=== PATIENT | male | born 1940 | race Caucasian/White ===

== ENCOUNTER 2019-07-11 12:58 | Observation (INO) | payer MEDICARE ==
[2019-07-11] MEDS ORDERED: ASPIRIN 81 MG TABLET, CHEWABLE PO ONE (13:02)
--- NOTE | 2019-07-11 13:53 | RADIOLOGY REPORT (SQ) ---
EXAM DESCRIPTION: CHEST SINGLE VIEW COMPLETED DATE/TIME: 07/11/2019 1:41 pm REASON FOR STUDY: bed 15 cp COMPARISON: None. EXAM PARAMETERS: NUMBER OF VIEWS: One view. TECHNIQUE: Single frontal radiographic view of the chest acquired. RADIATION DOSE: NA LIMITATIONS: None. FINDINGS: LUNGS AND PLEURA: No consolidation, pneumothorax or pleural effusion. MEDIASTINUM AND HILAR STRUCTURES: No masses. Contour normal. HEART AND VASCULAR STRUCTURES: Heart normal in size. Normal vasculature. BONES: No acute findings. HARDWARE: There is a left-sided pacemaker. IMPRESSION: No acute radiographic finding in the chest. TECHNICAL DOCUMENTATION: JOB ID: [id number] 2010 [employer]- All Rights Reserved Reading location - IP/workstation name: [email or web address]
[2019-07-11 14:13] LABS: ABSOLUTE LYMPHOCYTES (AUTO) 1.1 10^3/uL (0.5-4.7); ABSOLUTE MONOCYTES (AUTO) 0.2 10^3/uL (0.1-1.4); ABSOLUTE NEUT (AUTO) 2.4 10^3/uL (1.7-8.2); BASOPHILS % (AUTO) 0.6 % (0-2); EOSINOPHILS % (AUTO) 0.7 % (0-6); HEMATOCRIT 35.9 % (37.9-51.0); LYMPHOCYTES % (AUTO) 29.3 % (13-45); MEAN CORPUSCULAR HEMOGLOBIN 29.9 pg (27.0-33.4); MEAN CORPUSCULAR HGB CONC 33.5 g/dL (32.0-36.0); MEAN CORPUSCULAR VOLUME 89 fl (80-97); MONOCYTES % (AUTO) 5.1 % (3-13); PLATELET COUNT 159 10^3/uL (150-450); RED BLOOD COUNT 4.01 10^6/uL (4.35-5.55); RED CELL DISTRIBUTION WIDTH 15.7 % (11.5-14.0); SEGMENTED NEUTROPHILS % (AUTO) 64.3 % (42-78); TOTAL CELLS COUNTED % (AUTO) 100 %; WHITE BLOOD COUNT 3.8 10^3/uL (4.0-10.5)
[2019-07-11 14:19] LABS: ALBUMIN 3.6 g/dL (3.5-5.0); ALKALINE PHOSPHATASE 57 U/L (38-126); ANION GAP 7 (5-19); ASPARTATE AMINO TRANSFERASE 17 U/L (17-59); BILIRUBIN,DIRECT 0.1 mg/dL (0.0-0.4); BILIRUBIN,TOTAL 0.7 mg/dL (0.2-1.3); BLOOD UREA NITROGEN 11 mg/dL (7-20); CALCIUM 9.2 mg/dL (8.4-10.2); CARBON DIOXIDE 24 mmol/L (22-30); CHLORIDE 108 mmol/L (98-107); CREATINE KINASE 95 U/L (55-170); GLUCOSE 109 mg/dL (75-110); POTASSIUM 3.9 mmol/L (3.6-5.0); TOTAL PROTEIN 6.1 g/dL (6.3-8.2)
[2019-07-11 14:31] LABS: CREATINE KINASE MB 0.78 ng/mL (<4.55)
[2019-07-11 14:32] LABS: TROPONIN I < 0.012 ng/mL
--- NOTE | 2019-07-11 16:13 | ER Document Report ---
ED General - General Chief Complaint: Blood Pressure Problem Stated Complaint: LOW BLOOD PRESSURE Time Seen by Provider: 07/11/19 13:06 Notes: 78-year-old male brought to the emergency department by EMS for intermittent episodes of nausea that have been worsening today associated with near syncopal episodes and blurry vision. Denies any chest pain or shortness of breath. EMS states that when they picked him up his pressure was in the 80s and when they sat him up it went down into the 60s and patient was also somewhat bradycardic. States that he has had episodes similar to these before but never this bad. They have never figured out exactly what is causing these episodes. Admits to having a pacemaker. Primary care physician is at [facility], casing material weigher is Dr. Hinton. TRAVEL OUTSIDE OF THE [place] IN LAST 30 DAYS: No Past Medical History - General Information source: Patient, Emergency Med Personnel - Social History Smoking Status: Current Every Day Smoker Chew tobacco use (# tins/day): No Frequency of alcohol use: Occasional Drug Abuse: None Family History: Reviewed & Not Pertinent Patient has suicidal ideation: No Patient has homicidal ideation: No - Past Medical History Cardiac Medical History: Reports: Hx Hypertension Review of Systems - Review of Systems Constitutional: See HPI, Weakness Cardiovascular: See HPI, Syncope - near syncope. denies: Chest pain Respiratory: No symptoms reported Gastrointestinal: See HPI, Nausea -: Yes All other systems reviewed and negative Physical Exam - Vital signs Vitals: Pulse Ox 100 07/11/19 13:02 Interpretation: Hypotensive - Notes Notes: GENERAL: Alert, interacts well. No acute distress. HEAD: Normocephalic, atraumatic EYES: Pupils equal, round and reactive to light, extraocular movements intact. ENT: Oral mucosa moist, tongue midline. NECK: Full range of motion, supple, trachea midline. LUNGS: Clear to auscultation bilaterally, no wheezes, rales or rhonchi, no respiratory distress. HEART: Regular rate and rhythm, no murmurs, gallops, rubs. ABDOMEN: Soft, nontender, nondistended, bowel sounds present in all 4 quadrants. EXTREMITIES: Moves all 4 extremities spontaneously, no edema, radial and dorsalis pedis pulses 2/4 bilaterally. No cyanosis. NEUROLOGICAL: Alert and oriented x3, normal speech. PSYCH: Normal mood, normal affect. SKIN: Warm, Dry, normal turgor, no rashes or lesions noted. Course - Re-evaluation Re-evalutation: 07/11/19 16:52 CBC shows anemia hemoglobin 12.0, CMP grossly unremarkable, cardiac enzymes negative x1, proBNP elevated at 1620 with no history of congestive heart failure or other elevated proBNP. Chest x-ray shows no acute process. EKG shows some ST segment depressions, no old one available for comparison at this time. After a liter of fluids the patient's blood pressure has normalized and he is feeling much better however he is concerned by the fact that he has never had an episode this bad before and he is afraid it may recur overnight. Patient states that his symptoms have been steadily worsening for the past 4 to 5 months. Patient also states that he has been told that he has "thickening around the discharge valve" of his heart. Patient cannot tell me anymore about this. Patient was discussed with Herman Drake the nurse practitioner from the hospitalist service who agrees to place the patient in observation status for further observation and investigation of the source of this patient's worsening hypotension and near syncopal episodes. - Vital Signs Vital signs: Temp Pulse Resp BP Pulse Ox 16 127/70 H 100 07/11/19 15:01 07/11/19 15:01 07/11/19 15:01 - Laboratory Result Diagrams: 07/11/19 13:38 07/11/19 13:38 Laboratory results interpreted by me: 07/11/19 07/11/19 07/11/19 13:38 13:38 13:38 WBC 3.8 L RBC 4.01 L Hgb 12.0 L Hct 35.9 L RDW 15.7 H Chloride 108 H NT-Pro-B Natriuret Pep 1620 H Total Protein 6.1 L - EKG Interpretation by Me Additional EKG results interpreted by me: 07/11/19 16:55 EKG shows an atrial paced rhythm at a rate of 60, some ST segment depressions in 2, 3, aVF, V4 through V6. Less than 1 mm of elevation in V3 per my interpreta tion. Discharge - Discharge Clinical Impression: Elevated brain natriuretic peptide (BNP) level Hypotension Qualifiers: Hypotension type: unspecified hypotension type Qualified Code(s): I95.9 - Hypotension, unspecified Condition: Fair Disposition: ADMITTED OBSERVATION Admitting Provider: Charisse (Hospitalist) Unit Admitted: Telemetry
[2019-07-11] MEDS ORDERED: ONDANSETRON 4 MG TAB.RAPDIS PO PRN (17:04)
[2019-07-11] MEDS ORDERED: ONDANSETRON HCL INJ/PF 4 MG/2 ML SDV IV PRN (17:04)
[2019-07-11] MEDS ORDERED: ACETAMINOPHEN 325 MG TABLET PO PRN (17:04)
--- NOTE | 2019-07-11 17:39 | PDOC H&P ---
History of Present Illness Admission Date/PCP: 07/11/19 17:04 AIYANA SORIANO Admitted today for syncope and hypotension History of Present Illness: WU PISANO is a 78 year old male Is an 78-year-old who tells me that he called EMS today because his "spell" lasted longer than usual patient states that for many years now may be 10 to 15 years he has had these episodes where he becomes nauseated and weak and has shortness of breath patient states that it lasted few minutes and then goes away today it seemed to last longer. Patient states that is been going on and getting worse now for the last 5 months. Patient tells me that 5 or 6 [place]" where he fell and hit his head. This was a syncope spell similar to what he has had in the past patient tells me another episode 3 years ago when he was at a gas station where he had a syncopal spell and fell. These problems that he comes in for today are not new. Patient tells me seeing nail professional over in [place] he seen nail professional in [place] he seen nail professional in [place] and "no one can find what is wrong". Patient does have a pacemaker and now for the last 15 years was r ecently checked 3 months ago and found to be functioning properly. 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 Patient tells me that the doctors explained to him that his blood would not pump efficiently because of this. Patient states that right now in the emergency room he feels perfectly normal no chest pain no headache no shortness of breath no symptoms at all Patient has a nail professional Dr. Granados in [place] I did bring the ER physician in the room with me and we discussed the case it is doubtful that this is CHF however I agree that the patient does need to be put in observation status and watched overnight. I will review patient's previous work-up here so that I do not duplicate services Past Medical History Cardiac Medical History: Reports: Hypertension, Other - Pacemaker for irregular heartbeat Psychiatric Medical History: Reports: None Past Surgical History Past Surgical History: Reports: Pacemaker Social History Smoking Status: Current Every Day Smoker Family History Family History: Reviewed & Not Pertinent Parental Family History Reviewed: No Children Family History Reviewed: No Sibling(s) Family History Reviewed.: No Review of Systems Constitutional: ABSENT: chills, fever(s), headache(s), weight gain, weight loss Eyes: PRESENT: other - Vision Cardiovascular: ABSENT: chest pain, dyspnea on exertion, edema, orthropnea, palpitations Respiratory: ABSENT: cough, hemoptysis Gastrointestinal: PRESENT: nausea Neurological: ABSENT: abnormal gait, abnormal speech, confusion, dizziness, focal weakness, syncope Physical Exam Vital Signs: Temp Pulse Resp BP Pulse Ox 16 127/70 H 100 07/11/19 15:01 07/11/19 15:01 07/11/19 15:01 General appearance: PRESENT: no acute distress Neck exam: ABSENT: carotid bruit, JVD, lymphadenopathy, thyromegaly Respiratory exam: PRESENT: clear to auscultation tanner. ABSENT: rales, rhonchi, wheezes Cardiovascular exam: PRESENT: RRR. ABSENT: diastolic murmur, rubs, systolic murmur Pulses: PRESENT: normal dorsalis pedis pul Neurological exam: PRESENT: alert, awake, oriented to person, oriented to place, oriented to time, oriented to situation, CN II-XII grossly intact. ABSENT: motor sensory deficit Psychiatric exam: PRESENT: appropriate affect, normal mood. ABSENT: homicidal ideation, suicidal ideation Results Laboratory Results: 07/11/19 13:38 07/11/19 13:38 07/11/19 07/11/19 13:38 13:38 WBC 3.8 L RBC 4.01 L Hgb 12.0 L Hct 35.9 L MCV 89 MCH 29.9 MCHC 33.5 RDW 15.7 H Plt Count 159 Seg Neutrophils % 64.3 Sodium 138.9 Potassium 3.9 Chloride 108 H Carbon Dioxide 24 Anion Gap 7 BUN 11 Creatinine 0.97 Est GFR ( Amer) > 60 Glucose 109 Calcium 9.2 Total Bilirubin 0.7 AST 17 Alkaline Phosphatase 57 Total Protein 6.1 L Albumin 3.6 07/11/19 07/11/19 07/11/19 13:38 13:38 13:38 Creatine Kinase 95 CK-MB (CK-2) 0.78 Troponin I < 0.012 NT-Pro-B Natriuret Pep 1620 H Impressions: Chest X-Ray 07/11/19 13:02 IMPRESSION: No acute radiographic finding in the chest. Assessment and Plan - Diagnosis (1) Syncope Is this a current diagnosis for this admission?: Yes Plan: Patient will be in for obvious to telemetry for to be observed. Full cardiac work-up, syncope work-up, will not be done as this is been done multiple times in the past (2) Pacemaker Is this a current diagnosis for this admission?: Yes Plan: Patient's last pace maker evaluation was 3 months ago (3) Hypotension Qualifiers: Hypotension type: unspecified hypotension type Qualified Code(s): I95.9 - Hypotension, unspecified Is this a current diagnosis for this admission?: Yes Plan: Patient was given 1 L of fluids in the ER on arrival in the ER blood pressure was 82/49 30 minutes later is 141/70 7-hour and a half later is 127/70. Patient is paced between 60 and 67 - Time Time Spent with patient: 35 or more minutes
--- NOTE | 2019-07-11 19:08 | EKG REPORT ---
SEVERITY:- ABNORMAL ECG - ATRIAL-PACED RHYTHM LEFT VENTRICULAR HYPERTROPHY ANTERIOR INFARCT, AGE INDETERMINATE : Confirmed by: Jacquelin Ruiz 11-Jul-2019 19:08:01
[2019-07-11] MEDS: HEPARIN SOD (PORCINE) 5,000 UNIT/ML 1 ML VIAL SUBCUT SCH (21:28)
[2019-07-11] MEDS: NORMAL SALINE 1000 ML 1,000 ML IV PRN (21:37)
[2019-07-11] MEDS: FAMOTIDINE 20 MG TABLET PO SCH (21:37)
[2019-07-11] MEDS ORDERED: HYDRALAZINE HCL INJ/PF 20 MG/1 ML SDV IV PRN (23:32)
[2019-07-12 00:40] LABS: APPEARANCE,URINE SLIGHTLY-CLOUDY; BILIRUBIN,URINE NEGATIVE (NEGATIVE); COLOR,URINE YELLOW; GLUCOSE, URINE NEGATIVE (NEGATIVE); KETONES,URINE NEGATIVE (NEGATIVE); LEUKOCYTE ESTERASE,URINE LARGE (NEGATIVE); NITRITE,URINE NEGATIVE (NEGATIVE); PROTEIN,URINE NEGATIVE (NEGATIVE); URINE SPECIFIC GRAVITY 1.006; UROBILINOGEN,URINE NEGATIVE mg/dL (<2.0)
[2019-07-12] MEDS: HEPARIN SOD (PORCINE) 5,000 UNIT/ML 1 ML VIAL SUBCUT SCH (05:28)
[2019-07-12 06:40] LABS: ABSOLUTE EOSINOPHILS # (AUTO) 0.1 10^3/uL (0.0-0.6); ABSOLUTE LYMPHOCYTES (AUTO) 1.4 10^3/uL (0.5-4.7); ABSOLUTE MONOCYTES (AUTO) 0.3 10^3/uL (0.1-1.4); ABSOLUTE NEUT (AUTO) 2.1 10^3/uL (1.7-8.2); BASOPHILS % (AUTO) 0.5 % (0-2); EOSINOPHILS % (AUTO) 1.6 % (0-6); HEMATOCRIT 36.7 % (37.9-51.0); HEMOGLOBIN 12.2 g/dL (13.5-17.0); LYMPHOCYTES % (AUTO) 35.9 % (13-45); MEAN CORPUSCULAR HGB CONC 33.2 g/dL (32.0-36.0); MEAN CORPUSCULAR VOLUME 90 fl (80-97); MONOCYTES % (AUTO) 7.9 % (3-13); PLATELET COUNT 151 10^3/uL (150-450); RED BLOOD COUNT 4.05 10^6/uL (4.35-5.55); RED CELL DISTRIBUTION WIDTH 16.1 % (11.5-14.0); SEGMENTED NEUTROPHILS % (AUTO) 54.1 % (42-78); TOTAL CELLS COUNTED % (AUTO) 100 %; WHITE BLOOD COUNT 3.8 10^3/uL (4.0-10.5)
[2019-07-12 07:05] LABS: BLOOD UREA NITROGEN 14 mg/dL (7-20); CALCIUM 8.6 mg/dL (8.4-10.2); CARBON DIOXIDE 26 mmol/L (22-30); CHLORIDE 110 mmol/L (98-107); GLUCOSE 104 mg/dL (75-110); POTASSIUM 3.8 mmol/L (3.6-5.0)
[2019-07-12 07:09] LABS: ANION GAP 4 (5-19)
[2019-07-12] MEDS: NORMAL SALINE 1000 ML 1,000 ML IV PRN (07:55)
--- NOTE | 2019-07-12 07:57 | EKG REPORT ---
SEVERITY:- ABNORMAL ECG - ATRIAL-PACED RHYTHM ANTERIOR INFARCT, AGE INDETERMINATE : Confirmed by: Jacquelin Ruiz 12-Jul-2019 07:56:33
--- NOTE | 2019-07-12 08:50 | RADIOLOGY REPORT (SQ) ---
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 TECHNIQUE: Axial images acquired through the brain without intravenous contrast. Images reviewed wi th bone, brain and subdural windows. Additional sagittal and coronal reconstructions were generated. Images stored on PACS. All CT scanners at this facility use dose modulation, iterative reconstruction, and/or weight based d osing when appropriate to reduce radiation dose to as low as reasonably achievable (ALARA). [facility]: Dose Right [facility]: CareDose [facility]: Dose Right [facility]: Teradose 4D [facility]: Lingvist RADIATION DOSE: CT Rad equipment meets quality standard of care and radiation dose reduction techniq ues were employed. CTDIvol: 53.2 mGy. DLP: 937 mGy-cm. mGy. LIMITATIONS: None. FINDINGS: VENTRICLES: Prominent. CEREBRUM: No masses. No hemorrhage. No midline shift. Areas of low density in the white matter mos t likely due to chronic micro-vascular ischemic change. No evidence for acute infarction. CEREBELLUM: No masses. No hemorrhage. No alteration of density. No evidence for acute infarction. EXTRAAXIAL SPACES: Mild age-related involutional change. No fluid collections. No masses. ORBITS AND GLOBE: No intra- or extraconal masses. Normal contour of globe without masses. CALVARIUM: No fracture. PARANASAL SINUSES: No fluid or mucosal thickening. SOFT TISSUES: No mass or hematoma. OTHER: No other significant finding. IMPRESSION: MILD CHRONIC CHANGES OF ATROPHY AND MICROVASCULAR ISCHEMIA. NO ACUTE PROCESS. EVIDENCE OF ACUTE STROKE: NO. TECHNICAL DOCUMENTATION: JOB ID: [id number] Quality ID # [id number]: Final reports with documentation of one or more dose reduction techniques (e.g., Au tomated exposure control, adjustment of the mA and/or kV according to patient size, use of iterative reconstruction technique) 2010 [employer]- All Rights Reserved Reading location - IP/workstation name: [email or web address]
[2019-07-12] MEDS ORDERED: DOCUSATE SODIUM 100 MG CAPSULE PO SCH (10:00)
[2019-07-12] MEDS: FAMOTIDINE 20 MG TABLET PO SCH (10:49)
--- NOTE | 2019-07-12 11:05 | PDOC DISCHARGE SUMMARY ---
General - Admit/Disc Date/PCP Admission Date/Primary Care Provider: 07/11/19 17:04 AIYANA SORIANO Patient admitted yesterday through the emergency room for weakness, shortness of breath and nausea. Discharge Date: 07/12/19 - Discharge Diagnosis (1) Syncope Is this a current diagnosis for this admission?: Yes Summary: Patient has had the syncopal spells off and on now for over 15 years patient states that he has had these worked up by math interventionist in [place] in [place] as well as [place]. Patient had a pacemaker placed ago. On this admission patient had no syncope associated with his "spell" (2) Pacemaker Is this a current diagnosis for this admission?: Yes Summary: Patient's pacemaker was evaluated 3 months ago and found to be in good working order (3) Hypotension Is this a current diagnosis for this admission?: Yes Summary: Patient's only episode of hypotension was in the ER on arrival 82/49 but with 1 L quickly went up to 141/77 last night it was 143/70 and this morning resting in bed at 0325 hrs. it was 95/45 patient is sitting up in bed talking to the dietitian laughing in no distress - Additional Information Resuscitation Status: Full Code Discharge Diet: As Tolerated, Other (Comments) - Try different protein drinks to increase patient's BMI Discharge Activity: Balance Activity w/Rest History of Present Illness History of Present Illness: WU PISANO is a 78 year old male Is an 78-year-old who tells me that he called EMS today because his "spell" lasted longer than usual patient states that for many years now may be 10 to 15 years he has had these episodes where he becomes nauseated and weak and has shortness of breath patient states that it lasted few minutes and then goes away today it seemed to last longer. Patient states that is been going on and getting worse now for the last 5 months. Patient tells me that 5 or 6 [place]" where he fell and hit his head. This was a syncope spell similar to what he has had in the past patient tells me another episode 3 years ago when he was at a gas station where he had a syncopal spell and fell. These problems that he comes in for today are not new. Patient tells me seeing math interventionist over in [place] he seen math interventionist in [place] he seen math interventionist in [place] and "no one can find what is wrong". Patient does have a pacemaker and now for the last 15 years was recently checked 3 months ago and found to be functioning properly. 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 Patient tells me that the doctors explained to him that his blood would not pump efficiently because of this. Patient states that right now in the emergency room he feels perfectly normal no chest pain no headache no shortness of breath no symptoms at all Patient has a math interventionist Dr. Granados in [place] I did bring the ER physician in the room with me and we discussed the case it is doubtful that this is CHF however I agree that the patient does need to be put in observation status and watched overnight. I will review patient's previous work-up here so that I do not duplicate services Hospital Course Hospital Course: Patient was observed in the hospital overnight and had no episodes of hypotension or syncope or altered mental status Patient's EKG showed a atrial paced rhythm with left ventricular hypertrophy and anterior infarct age indeterminate patient had no chest pain or shortness of breath when I examined him, and patient denies chest pain throughout this whole episode Test x-ray showed no acute pathology and CT head scan showed only microvascular changes. Repeat EKG this morning was unchanged from last night no acute findings. Patient was discharged home in good condition patient states he just saw his math interventionist last week in [place]. Patient knows that if these events occur he is to just sit down and rest and they will go away as they have done so for the last 15 years Physical Exam Vital Signs: Temp Pulse Resp BP Pulse Ox 98.4 F 66 17 122/64 98 07/12/19 08:00 07/12/19 08:00 07/12/19 08:00 07/12/19 08:00 07/12/19 08:00 Intake & Output 07/11/19 07/12/19 07/13/19 06:59 06:59 06:59 Intake Total 500 1000 Balance 500 1000 Weight 53.6 kg General appearance: PRESENT: no acute distress, other - Laughing smiling talking Respiratory exam: PRESENT: clear to auscultation tanner. ABSENT: rales, rhonchi, wheezes Cardiovascular exam: PRESENT: RRR. ABSENT: diastolic murmur, rubs, systolic murmur Neurological exam: PRESENT: alert, awake, oriented to person, oriented to place, oriented to time, oriented to situation, CN II-XII grossly intact. ABSENT: motor sensory deficit Psychiatric exam: PRESENT: appropriate affect, normal mood. ABSENT: homicidal ideation, suicidal ideation Results Laboratory Results: 07/12/19 06:05 07/12/19 06:05 07/11/19 07/11/19 07/11/19 13:38 13:38 13:38 WBC 3.8 L RBC 4.01 L Hgb 12.0 L Hct 35.9 L MCV 89 MCH 29.9 MCHC 33.5 RDW 15.7 H Plt Count 159 Seg Neutrophils % 64.3 Sodium 138.9 Potassium 3.9 Chloride 108 H Carbon Dioxide 24 Anion Gap 7 BUN 11 Creatinine 0.97 Est GFR ( Amer) > 60 Glucose 109 Calcium 9.2 Magnesium Total Bilirubin 0.7 AST 17 Alkaline Phosphatase 57 Total Protein 6.1 L Albumin 3.6 TSH 1.60 Urine Color Urine Appearance Urine pH Ur Specific [place] Urine Protein Urine Glucose (UA) Urine Ketones Urine Blood Urine Nitrite Ur Leukocyte Esterase Urine WBC (Auto) Urine RBC (Auto) 07/11/19 07/12/19 07/12/19 17:20 06:05 06:05 WBC 3.8 L RBC 4.05 L Hgb 12.2 L Hct 36.7 L MCV 90 MCH 30.0 MCHC 33.2 RDW 16.1 H Plt Count 151 Seg Neutrophils % 54.1 Sodium 139.5 Potassium 3.8 Chloride 110 H Carbon Dioxide 26 Anion Gap 4 L BUN 14 Creatinine 0.86 Est GFR ( Amer) > 60 Glucose 104 Calcium 8.6 Magnesium 1.9 Total Bilirubin AST Alkaline Phosphatase Total Protein Albumin TSH Urine Color YELLOW Urine Appearance SLIGHTLY-CLOUDY Urine pH 7.0 Ur Specific [place] 1.006 Urine Protein NEGATIVE Urine Glucose (UA) NEGATIVE Urine Ketones NEGATIVE Urine Blood NEGATIVE Urine Nitrite NEGATIVE Ur Leukocyte Esterase LARGE H Urine WBC (Auto) 93 Urine RBC (Auto) 1 07/11/19 07/11/19 07/11/19 13:38 13:38 13:38 Creatine Kinase 95 CK-MB (CK-2) 0.78 Troponin I < 0.012 NT-Pro-B Natriuret Pep 1620 H 07/11/19 17:20 Creatine Kinase CK-MB (CK-2) Troponin I < 0.012 NT-Pro-B Natriuret Pep Impressions: Chest X-Ray 07/11/19 13:02 IMPRESSION: No acute radiographic finding in the chest. Head CT 07/11/19 17:43 IMPRESSION: MILD CHRONIC CHANGES OF ATROPHY AND MICROVASCULAR ISCHEMIA. NO ACUTE PROCESS. EVIDENCE OF ACUTE STROKE: NO. Qualifiers - * PATIENT BEING DISCHARGED WITH ANY OF THE FOLLOWING DIAGNOSIS: No Acute Heart Failure - Is this a Heart Failure Patient?: No Plan Time Spent: Greater than 30 Minutes - Patient is to follow-up with his [facility] ologist in [place] as needed no prescriptions were written. Patient seems satisfied with today's visit and his overnight observation status
[2019-07-12 12:46] VITALS: BP 122/64
== END 2019-07-12 13:35 | disposition home or self-care (01) ==
LOC: EDBD → ER 12:58 → EH 17:04 → 4N 20:35
PROVIDERS: ADMIT Hospitalist; ATTEND Hospitalist
DX: R55 Syncope and collapse (principal); I95.9 Hypotension, unspecified; F17.200 Nicotine dependence, unspecified, uncomplicated; R11.0 Nausea; R53.1 Weakness; R06.02 Shortness of breath; Q24.8 Other specified congenital malformations of heart; I51.7 Cardiomegaly; D64.9 Anemia, unspecified; R79.89 Other specified abnormal findings of blood chemistry; Z95.0 Presence of cardiac pacemaker; Z91.81 History of falling
CPT/HCPCS: 93005 ×2; 99285; 36415 ×2; 82553; 82550; 83735; 84443; 85025 ×2; 80048; 80053; 81001; 84484; 83880; 71045; 70450; 93010 ×2; G0378 ×3; A9270 ×4; J0360; J7030 ×2